=== PATIENT | female | born 1955 | race Caucasian/White ===

== ENCOUNTER 2016-11-09 13:13 | Emergency (ER) | payer MEDICARE ==
[~2016-11-09] VITALS: Ht 167.6 cm; Wt 69.5 kg
[2016-11-09] MEDS ORDERED: DIPHENHYDRAMINE 50 MG/ML, 1ML IVPush ONE (13:30)
[2016-11-09] MEDS ORDERED: PROCHLORPERAZINE 5 MG/ML, 2ML IVPush ONE (13:30)
[2016-11-09] MEDS ORDERED: SODIUM CHLORIDE 0.9% 1,000ML IVBOLUS ONE (13:30)
[2016-11-09] MEDS ORDERED: TRAM50TA2 PO (16:31)
[2016-11-09] MEDS ORDERED: ACET-1600 PO (16:31)
[2016-11-09] MEDS ORDERED: WARF2.5T PO (16:31)
[2016-11-09] MEDS ORDERED: OXYcodone/APAP 5/325MG TABLET PO ONE (17:00)
[2016-11-09] MEDS ORDERED: OXYcodone/APAP 5/325MG TABLET ONE (17:08)
[2016-11-09 17:49] VITALS: BP 157/69
== END 2016-11-09 19:13 | disposition home or self-care (01) ==
LOC: ED 18:15
DX: G44.201 Tension-type headache, unspecified, intractable (principal); M54.2 Cervicalgia
CPT/HCPCS: 70450; 72125; 99284